=== PATIENT | female | born 1970 | race Caucasian/White ===

== ENCOUNTER 2018-10-20 17:26 | Emergency (ER) | payer OTHER ==
[2018-10-20] MEDS ORDERED: KETOROLAC TROMETHAMINE 60 MG/2 ML VIAL IM ONE (18:07)
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
[2018-10-20 18:22] VITALS: BP 142/62
== END 2018-10-20 18:22 | disposition home or self-care (01) ==
LOC: ED 17:26
DX: Z04.1 Encounter for examination and observation following transport accident (principal); R51 Headache; M79.605 Pain in left leg; M79.604 Pain in right leg; V43.52XA Car driver injured in collision with other type car in traffic accident, initial encounter; Y93.89 Activity, other specified; Y92.488 Other paved roadways as the place of occurrence of the external cause
CPT/HCPCS: 96372; 99282; 99283; J1885